=== PATIENT | male | born 2000 | race Hispanic/Latino ===

== ENCOUNTER 2019-08-19 22:02 | Emergency (ER) | payer OTHER ==
[~2019-08-19] VITALS: Ht 162.6 cm; Wt 79.1 kg
[2019-08-19 23:08] LABS: BASO % 0.5 % (0.0-1.0); EOS # 0.2 10^3/uL (0.0-0.5); HEMATOCRIT 42.5 % (42.0-52.0); LYMPH # 2.8 10^3/uL (1.5-5.0); LYMPH % 36.8 % (24.0-44.0); MEAN CORPUSCULAR HEMOGLOBIN 28.1 pg (27.0-33.0); MEAN CORPUSCULAR HGB CONC 32.9 g/dl (32.0-36.5); MEAN CORPUSCULAR VOLUME 85.3 fl (80.0-96.0); MONO # 0.9 10^3/uL (0.0-0.8); MONO % 11.4 % (0.0-5.0); NEUTROPHILS # 3.7 10^3/uL (1.5-8.5); PLATELET COUNT, AUTOMATED 244 10^3/uL (150-450); RED BLOOD COUNT 4.98 10^6/uL (4.30-6.10); WHITE BLOOD COUNT 7.7 10^3/uL (4.0-10.0)
[2019-08-19 23:43] LABS: CK-MB VALUE MASS < 1.0 NG/ML (<3.6); CPK CREATINE PHOSPHOKINASE 164 U/L (39-308); MB/CK RELATIVE INDEX 0.61 (< OR =4); TROPONIN I < 0.02 NG/ML (< 0.10)
[2019-08-20] MEDS ORDERED: IBUPROFEN 800 MG TAB PO ONE
[2019-08-20 00:11] VITALS: BP 127/60
--- NOTE | 2019-08-20 08:28 | ECGEPIP ---
[facility] - ED Test Date: 2019-08-19 Pat Name: TRACY ESCALONA Department: Room: - Gender: Male Client Service Professional: lima : 2000 Requested By: SARA EDMONDSON Order Number: [id number] Reading MD: Nik Fregoso Measurements Intervals [place] Rate: 65 P: 12 WV: 165 QRS: 40 QRSD: 103 T: 28 QT: 365 QTc: 382 Interpretive Statements SINUS RHYTHM NO PRIORS FOR COMPARISON Electronically Signed on 08-20-2019 8:28:34 EDT by Nik Fregoso
--- NOTE | 2019-08-20 08:42 | REP ---
REASON: Chest pain. COMPARISON: No priors. FINDINGS: The superior mediastinal structures are midline. The cardiac silhouette is unremarkable in size, shape, and position. The diaphragmatic surfaces of the lungs are regular, and the costophrenic angles are clear. The pulmonary choi are clear. The imaged osseous structures are intact. IMPRESSION: There is no acute cardiopulmonary disease. Electronically Signed by Kwasi Sanchez DO 08/20/2019 01:13 P
== END 2019-08-20 00:13 | disposition home or self-care (01) ==
LOC: M ED 22:02
DX: S29.011A Strain of muscle and tendon of front wall of thorax, initial encounter (principal); X58.XXXA Exposure to other specified factors, initial encounter; Y92.9 Unspecified place or not applicable; Y93.9 Activity, unspecified; Y99.9 Unspecified external cause status

== ENCOUNTER → 2020-04-23 | Outpatient (CLI) | payer OTHER | LOC: M LABSMTC 13:28 | PROVIDERS: ATTEND Pediatrics | DX: Z11.52 Encounter for screening for COVID-19 (principal) ==